=== PATIENT | male | born 1995 | race Caucasian/White ===

== ENCOUNTER 2024-11-12 12:42 | Emergency (ER) | payer SELFPAY ==
--- NOTE | ~2024-11-12 | XR_ITS ---
EXAMINATION: XR KNEE 4 OR MORE VIEWS LEFT HISTORY: twisting injury heard crack COMPARISON: There are no prior studies available for comparison. FINDINGS: Four views of the left knee are submitted. Osseous mineralization is normal. There is no fracture or dislocation. The joint spaces are preserved. There is a large suprapatellar joint effusion. XR/XR knee LT 4V IMPRESSION: Large joint effusion. No osseous abnormality is identified. Electronically signed by: Tom Jalloh MD 11/12/2024 01:20 PM EDT
[2024-11-12 13:01] VITALS: BP 146/67; PULSE 78; RESP 20; TEMP 37; O2SAT 98; BMI 34.4
--- NOTE | 2024-11-12 13:04 | ED_ITS ---
HPI - General Adult General Chief complaint: Extremity Injury, Lower Stated complaint: L knee dislocation? Time Seen by Provider: 11/12/24 16:51 Source: patient Mode of arrival: wheelchair Limitations: no limitations History of Present Illness ED Provider: Winifred Fuller PA-C HPI narrative: Patient is a 29 year old assigned male at with no significant medical history presenting to the emergency department with left knee / thigh pain. Patient states that he tripped and fell leaving the gym today and heard crunching and snapping . Patient states that he has not been able to lift his left lower leg with his thigh since the incident and is having pain. Patient denies any other symptoms at this time. Related Data Allergies Allergy/AdvReac Type Severity Reaction Status Date / Time No Known Allergies (No Known Allergy Unverified 11/12/24 13:04 Allergies*) Review of Systems Constitutional: Constitutional: Reports as per HPI Eyes: Eyes: Reports as per HPI ENT: Reports as per HPI Cardiovascular: Cardiovascular: Reports as per HPI Respiratory: Respiratory: Reports as per HPI Gastrointestinal: Gastrointestinal: Reports as per HPI Genitourinary: Genitourinary: Reports as per HPI Musculoskeletal: Musculoskeletal: Reports as per HPI Integumentary/Breasts: Skin/Breast: Reports as per HPI Neurologic: Reports as per HPI Psychiatric: Psychiatric: Reports as per HPI Endocrine: Endocrine: Reports as per HPI Hematologic/Lymphatic: Hematologic/Lymphatic: Reports as per HPI Allergic/Immunologic: Allergic/Immunologic: Reports as per HPI [facility] Past Medical History Attestation statement: The following information was validated with the patient. Source: old records reviewed and nursing notes reviewed Social History Social History Advance Directives: No Advance Directives Information Provided: Yes Physical Exam ED Vital Signs: Vital Signs - 24 hr 11/12/24 13:01 11/12/24 16:54 11/12/24 17:47 Temperature 98.6 F 97.8 F Pulse Rate 78 73 73 Respiratory Rate 20 20 20 Blood Pressure 146/67 H 126/71 126/71 Pulse Oximetry 98 100 100 Oxygen Delivery Method Room Air Room Air Room Air BMI result Body Mass Index 34.4 Const General: cooperative, no acute distress, alert and awake Nutritional Appearance: well nourished Orientation/consciousness: patient oriented x3 HENMT Head: Yes normal to inspection and Yes atraumatic Ears: hearing grossly normal bilaterally and external ears normal General nose exam: Normal external nose present, no nasal discharge noted and no epistaxis Face and sinus: Yes normal facial exam, No abrasion and No laceration Mouth: Normal oral and palatal mucosa present, no drooling and no muffled voice Eyes General: appearance normal, both eyes and all related structures Periorbital: periorbital findings normal Eyelids: Yes eyelids normal Conjunctivae: conjunctivae normal Pupils: Equal, round and reactive pupils present EOM: EOMs intact bilaterally Neck Neck: Yes normal visual inspection and Yes full ROM Resp Effort & Inspection: normal respiratory effort and able to speak in complete sentences Neuro General: patient oriented x3, moves all extremities and CN's II-XI intact bilaterally Cranial nerves: Yes Equal, round and reactive pupils present Cognition (Neuro): normal cognition Extrem Other: significant swelling to the dorsal left thigh just above the knee joint pain with left knee extension inability to lift left lower leg with quad General: Yes capillary refill normal Psych Appearance: grossly normal Mental Status: mental status grossly normal Affect: normal affect Attitude: cooperative Thought process: Normal thought process present Thought content: Normal thought content present Insight: Good insight present (Psych) Course Course Course Narrative: This is a Rapid Medical Examination (RME) performed by Claudia Garber PA-C in triage. Full HPI, ROS, assessment and treatment plan per primary provider in the Main ED. Hx: 29 yo M here for eval of L knee pain/swelling s/p trip and fall while leaving the gym. believes he may have twisted the knee, heard a crunch . admits to numbness/tingling. no head strike. PE/vitals: unable to actively extend L knee. noted swelling, no obvious deformity. nv intact distally. Plan: xrs, tylenol given in triage. Medications Administered Discontinued Medications Generic Name Dose Route Start Last Admin Trade Name Freq PRN Reason Stop Dose Admin Acetaminophen 975 mg 11/12/24 13:04 11/12/24 13:06 Acetaminophen 325 Mg Tablet PO 11/12/24 13:05 975 mg ONCE ONE Administration Ibuprofen 600 mg 11/12/24 16:04 11/12/24 17:28 Ibuprofen 600 Mg Tablet PO 11/12/24 16:05 Not Given ONCE ONE Ketorolac Tromethamine 15 mg 11/12/24 17:08 11/12/24 17:22 Ketorolac Tromethamine 15 Mg/Ml Vial IM 11/12/24 17:09 15 mg ONCE ONE Administration Procedures Orthopedic Splinting/Casting Left knee / thigh: Side: left Lower Extremity Injury Location: upper leg and knee Lower Extremity Immobilizer: knee immobilizer Other Orthopedic Equipment: crutches Medical Decision Making Medical Decision Making MDM Narrative: Patient is a 29 year old assigned male at with no significant medical history presenting to the emergency department with left knee / thigh pain. Patient's physical exam was as noted in the physical exam portion of this note. Patient's left knee x-ray showed an effusion. Patient's clinical presentation is most concerning for a quad tendon rupture / strain vs a left knee sprain / strain. I explained my physical exam findings as well as all test results to the patient. I answered all questions asked by the patient. Patient was placed in a knee immobilizer without incident. Patient was given crutches with crutch instructions. Patient's LLE PMS was intact prior to and after immobilizer placement. Patient was able to demonstrate appropriate use of crutches while in the department. I did make the orthopedic team aware of the patient and they agreed with treatment plan and outpatient follow. I stressed the importance of the patient taking his medication as directed (either prescribed or as the over the counter packaging recommends). I stressed the importance of the patient following up with his primary care provider and the orthopedic team. I stressed the importance of the patient returning to the emergency department immediately if his symptoms were to worsen or if he were to develop any dizziness, shortness of breath, difficulty breathing, chest pain, blurry vision, loss of vision, nausea, vomiting, abdominal pain, fever, chills, back pain, or any other complaints. Patient verbalized agreement and understanding with this treatment plan and discharge. Differential Diagnosis Differential Diagnoses: The differential diagnosis associated with the presentation includes Left quad tendon rupture Left quad tendon tear Left quad tendon sprain Left knee sprain Left knee strain Admission/Observation Consideration of admission/observation: Escalation of care including admission/observation considered Patient would have been admitted to the hospital had his work up had any findings where hospital admission was appropriate and his clinical presentation warranted hospital admission. Consult Healthcare Provider Management of the patient was discussed with: Immigration Manager (spoke with the orthopedic team as noted in the MDM Rationale portion of this note.) Independent Interpretation I performed an independent interpretation of an: Plain X-Ray Interpretation: My interpretation is in agreement with the radiologist's impression of this imaging study. Reason for Exam: twisting injury heard crack EXAMINATION: XR KNEE 4 OR MORE VIEWS LEFT HISTORY: twisting injury heard crack COMPARISON: There are no prior studies available for comparison. FINDINGS: Four views of the left knee are submitted. Osseous mineralization is normal. There is no fracture or dislocation. The joint spaces are preserved. There is a large suprapatellar joint effusion. XR/XR knee LT 4V IMPRESSION: Large joint effusion. No osseous abnormality is identified. Electronically signed by: Tom Jalloh MD 11/12/2024 01:20 PM EDT RP Dictated By: Tom Jalloh MD Signed By: Electronically signed by Tom Jalloh MD 11/12/24 1320 Radiology Impression Discussion of test interpretation with radiology: I have reviewed the radiologist's reading. Discharge Plan Discharge Clinical Impression: Injury of quadriceps tendon, Knee sprain Patient Disposition: Home, Self-Care Instructions: Crutch Instructions (ED), Tendon Rupture (ED) Additional Instructions: Your physical exam is concerning for a quad muscle or tendon injury. Wear your immobilizer as prescribed. Elevate the extremity when non ambulatory. Remain non weight bearing on your left lower extremity. Follow up with the orthopedic group. IF you are prescribed home medications and/or you are taking over the counter medications at home - it is very important you continue to do so as prescribed / directed unless told otherwise. Follow up with a primary care provider. Return to the emergency department immediately if your symptoms worsen or if you develop any numbness, tingling, dizziness, shortness of breath, difficulty breathing, chest pain, blurry vision, loss of vision, nausea, vomiting, abdominal pain, fever, chills, back pain, or any other complaints. If you do not have a primary care provider - call any of the below numbers to establish and follow up with a primary care provider. [facility] Primary Care ([place]) [phone] [place] [address], [address] [facility] Primary Care ([address] [place]) [phone] [place] [address], [address] [facility], [address] [facility] Primary Care ([address] [place]) [phone] [place] [address], [address] [facility], [address] [facility] Primary Care ([place]) [phone] [place] [address] [facility], [address] [facility] Family Medicine [phone] [address] [facility], [address] Please see the information below about our Patient Portal. If you are not yet enrolled in the [facility] Patient Portal, you will receive an enrollment email invitation following your visit to any [facility] setting. You may also self-enroll in the Patient Portal by visiting our website: [email or web address] The following information is required to access the Patient Portal: - Your [facility] Medical Record Number - Your personal home email address (must match what is in your electronic medical record, Registration staff can assist with this) - Name - Date of Capabilities of the Patient Portal: - Message some providers - View upcoming appointments - Access your health summary, medical history, and visit history - View current conditions and allergies - View procedure and lab results - View your medications, including guidelines, side effects, and precautions - Complete pre-appointment questionnaires requested by your provider - Ready summary reports of your office visits and procedures To access the Patient Portal Mobile Julia, follow these directions: - Search [employer] in the Julia Store or Google Play Store - Download the Julia - Search for [facility] - Enter your login/password Referrals: [facility] Orthopedic Surgeons [Provider Group] Referral Note: Call to establish and follow up with the orthopedic team. Stand Alone Forms: Work/School Release Interventions: ED Discharge Assessment Last Done: 11/12/24 17:47 Discharge Date/Time: 11/12/24 17:56 Print Language: Irish
[2024-11-12 16:54] VITALS: BP 126/71; PULSE 73; RESP 20; O2SAT 100
[2024-11-12 17:47] VITALS: BP 126/71; PULSE 73; RESP 20; TEMP 36.6; O2SAT 100
== END 2024-11-12 17:56 | disposition home or self-care (01) ==
PROVIDERS: Emergency Provider Emergency Medicine Emergency Medical Services
DX: S83.8X2A Sprain of other specified parts of left knee, initial encounter (principal); W01.0XXA Fall on same level from slipping, tripping and stumbling without subsequent striking against object, initial encounter; Y93.9 Activity, unspecified; Y92.9 Unspecified place or not applicable; Y99.9 Unspecified external cause status; M25.562 Pain in left knee
CPT/HCPCS: 73564; 96372; 99283; 99284; J1885

== ENCOUNTER → 2024-11-12 13:02 | Outpatient (BNV) | payer OTHER, SELFPAY | PROVIDERS: Visit Provider Radiology Diagnostic Radiology | DX: S83.91XA Sprain of unspecified site of right knee, initial encounter (principal); M25.462 Effusion, left knee; X50.1XXA Overexertion from prolonged static or awkward postures, initial encounter | CPT/HCPCS: 73564 ==